=== PATIENT | male | born 1990 | race Caucasian/White ===

== ENCOUNTER 2018-03-03 19:10 | Emergency (ER) | payer SELFPAY ==
[2018-03-03] MEDS ORDERED: TETRACAINE HCL 0.5% OPH SOLN 4 ML OD ONE (19:58)
--- NOTE | 2018-03-03 20:31 | ER Document Report ---
ED General - General Chief Complaint: Eye Injury Stated Complaint: EYE INJURY Time Seen by Provider: 03/03/18 19:57 Primary Care Provider: SIVA SCHULTE DO [ACTIVE STAFF] - 03/05/18 Notes: Patient is a 27-year-old male without chronic medical problems who presents with severe right eye pain. States this started after he removed the contact from his right eye and believes that he suddenly pinched the surface of the right eye at that time. Since then he has had a severe, constant, burning, stabbing pain to the eye. Nothing improves the pain, exposure to light worsens the pain. Notes hyperlacrimation. No history of similar injuries in the past. Has not seen his eye care provider regarding today's concerns. Denies any additional injuries or concerns today. TRAVEL OUTSIDE OF THE [place] IN LAST 30 DAYS: No - Related Data Allergies/Adverse Reactions: aspirin [Aspirin] Allergy (Mild, Verified 03/03/18 19:50) codeine [Codeine] Allergy (Mild, Verified 03/03/18 19:50) latex [Latex] Allergy (Mild, Verified 03/03/18 19:50) Penicillins Allergy (Mild, Verified 03/03/18 19:50) Sulfa (Sulfonamide Antibiotics) Allergy (Mild, Verified 03/03/18 19:50) Past Medical History - General Information source: Patient - Social History Smoking Status: Never Smoker Frequency of alcohol use: None Drug Abuse: None Lives with: Family Family History: Reviewed & Not Pertinent - Past Medical History Cardiac Medical History: Reports: Hx Atrial Fibrillation, Hx Congestive Heart Failure, Hx Hypertension Denies: Hx Coronary Artery Disease, Hx Heart Attack Pulmonary Medical History: Reports: Hx Asthma, Hx Pneumonia - hx walking Denies: Hx Bronchitis, Hx COPD Neurological Medical History: Denies: Hx Cerebrovascular Accident, Hx Seizures Endocrine Medical History: Denies: Hx Diabetes Mellitus Type 1, Hx Diabetes Mellitus Type 2 Musculoskeletal Medical History: Denies Hx Arthritis Psychiatric Medical History: Reports: Hx Attention Deficit Hyperactivity Disorder, Hx Depression Past Surgical History: Reports: Hx Adenoidectomy, Hx Myringotomy, Hx Tonsillectomy - adnoidectomy - Immunizations Immunizations up to date: Yes Hx Diphtheria, Pertussis, Tetanus Vaccination: Yes Review of Systems - Review of Systems Notes: Constitutional: Negative for fever. HENT: Negative for sore throat. Eyes: Positive for right eye pain Cardiovascular: Negative for chest pain. Respiratory: Negative for shortness of breath. Gastrointestinal: Negative for abdominal pain, vomiting or diarrhea. Genitourinary: Negative for dysuria. Musculoskeletal: Negative for back pain. Skin: Negative for rash. Neurological: Negative for headaches, weakness or numbness. 10 point ROS negative except as marked above and in HPI. Physical Exam - Vital signs Vitals: Temp Pulse Resp BP Pulse Ox 98.1 F 99 15 159/97 H 100 03/03/18 19:22 03/03/18 19:22 03/03/18 19:22 03/03/18 19:22 03/03/18 19:22 Interpretation: Hypertensive Notes: PHYSICAL EXAMINATION: GENERAL: Appears to be in pain, uncomfortable HEAD: Atraumatic, normocephalic. EYES: Left eye unremarkable. Right eye extraocular motions are intact. Pupillary reflex intact bilaterally. There is diffuse conjunctival injection and hyperlacrimation. Pupil without tear dropping. Fluorescein examination reveals a relatively large corneal abrasion in the center of the cornea. Visual adler intact. ENT: Moist mucous membranes. NECK: Normal range of motion LUNGS: Normal work of breathing HEART: 2+ radial pulses bilaterally EXTREMITIES: no pitting or edema. No cyanosis. NEUROLOGICAL: No focal neurological deficits. Moves all extremities spontaneously and on command. PSYCH: Anxious SKIN: Warm, Dry, normal turgor, no rashes or lesions noted. Course - Re-evaluation Re-evalutation: 03/03/18 20:32 Patient presents after sustaining a corneal abrasion to his right eye after attempting to take his contact lens out and apparently pinching his corneal surface. On fluorescein exam the patient does have a quite large corneal abrasion in the center of the cornea. No evidence of retained foreign body. Extraocular motions are intact. He has hyperlacrimation and diffuse conjunctival injection. No evidence of proptosis, no evidence of globe rupture. No tear dropping of the pupil. Patient did have significant relief after instillation of a dose of tetracaine. He has been started on ciprofloxacin drops due to using contacts. I have advised to follow-up with ophthalmology on Monday. At this time will discharge with return precautions and follow-up recommendations. Verbal discharge instructions given a the bedside and opportunity for questions given. Medication warnings reviewed. Patient is in agreement with this plan and has verbalized understanding of return precautions and the need for primary care follow-up in the next 24-72 hours. - Vital Signs Vital signs: Temp Pulse Resp BP Pulse Ox 97.8 F 98 21 H 147/91 H 100 03/03/18 20:33 03/03/18 20:33 03/03/18 20:33 03/03/18 20:33 03/03/18 20:33 Discharge - Discharge Clinical Impression: Right corneal abrasion Qualifiers: Encounter type: initial encounter Qualified Code(s): S05.01XA - Injury of conjunctiva and corneal abrasion without foreign body, right eye, initial encounter Condition: Stable Disposition: HOME, SELF-CARE Additional Instructions: You have a corneal abrasion. This should improve in the next several days. You should apply the eye drops that have been prescribed as directed. Follow-up with your eye doctor on monday. Return if you have worsening vision, worsening pain, increased drainage from the eye, you notice redness or puffiness around the eye, you develop a fever greater than 101F, or you have any other symptoms that are concerning to you. Prescriptions: Ciprofloxacin HCl [Ciloxan 0.3% Oph Soln 2.5 ml] 2 drop OP Q6H #1 bottle Forms: Parent Work Note Referrals: SIVA SCHULTE DO [ACTIVE STAFF] - 03/05/18
[2018-03-03 20:33] VITALS: BP 147/91
== END 2018-03-03 20:58 | disposition home or self-care (01) ==
LOC: ER 19:10
DX: S05.01XA Injury of conjunctiva and corneal abrasion without foreign body, right eye, initial encounter (principal); H57.11 Ocular pain, right eye; X58.XXXA Exposure to other specified factors, initial encounter; I10 Essential (primary) hypertension; J45.909 Unspecified asthma, uncomplicated; Z88.6 Allergy status to analgesic agent; Z88.5 Allergy status to narcotic agent; Z91.040 Latex allergy status; Z88.2 Allergy status to sulfonamides; Z88.0 Allergy status to penicillin
CPT/HCPCS: 99283; J3490

== ENCOUNTER → 2019-06-06 | Outpatient (CLI) | payer BC ==
--- NOTE | 2019-06-06 12:33 | ER RDC ASSESSMENT REPORT ---
Intake - In the Last 14 days Have you traveled outside [place]?: No Have you been in close contact with someone CONFIRMED: No Worked in Healthcare?: No - Symptoms Subjective Fever([place] feverish): Yes Chills: Yes Muscule Aches: Yes Runny Nose: Yes Sore Throat: Yes Cough (New or worsening chronic cough): Yes --How many day(s)?: Reports a dry cough and green productive sputum Shortness of breath: Yes Nausea or Vomiting: Yes Headache: Yes Abdominal Pain: Yes Diarrhea(3 or more loose stools in last 24 hours): No - Do you have any of the following Chronic lung disease: Asthma or emphysema or COPD: No Cystic Fibrosis: No Diabetes: No High Blood Pressure: Yes Cardiovascular Disease: Yes Chronic Kidney Disease: No Chronic Liver Disease: No Chronic blood disorder like Sickle Cell Disease: No Weak immune system due to disease or medication: No Neurologic condition that limits movement: No Developmental delay - Moderate to Severe: No Recent (within past 2 weeks) or current : No Morbid Obesity (>100 pounds over ideal weight): Yes Obesity Comment: Height 6 feet 0 inches weight 340 pounds 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 Started feeling ill with flu like symptoms on monday. Contacted PCP and started on medication. - Related Data Allergies/Adverse Reactions: aspirin [Aspirin] Allergy (Mild, Verified 03/03/18 19:50) codeine [Codeine] Allergy (Mild, Verified 03/03/18 19:50) latex [Latex] Allergy (Mild, Verified 03/03/18 19:50) Penicillins Allergy (Mild, Verified 03/03/18 19:50) Sulfa (Sulfonamide Antibiotics) Allergy (Mild, Verified 03/03/18 19:50) Past Medical History - Social History Smoking Status: Never Smoker Family History: Reviewed & Not Pertinent - Past Medical History Cardiac Medical History: Reports: Hx Atrial Fibrillation, Hx Congestive Heart Failure, Hx Hypertension Denies: Hx Coronary Artery Disease, Hx Heart Attack Pulmonary Medical History: Reports: Hx Asthma, Hx Pneumonia - hx walking Denies: Hx Bronchitis, Hx COPD Neurological Medical History: Denies: Hx Cerebrovascular Accident, Hx Seizures Endocrine Medical History: Denies: Hx Diabetes Mellitus Type 1, Hx Diabetes Mellitus Type 2 Musculoskeletal Medical History: Denies Hx Arthritis Psychiatric Medical History: Reports: Hx Attention Deficit Hyperactivity Disorder, Hx Depression Past Surgical History: Reports: Hx Adenoidectomy, Hx Myringotomy, Hx Tonsillectomy - adnoidectomy Physical Exam - General General appearance: Appears well, Alert In distress: None Notes: PHYSICAL EXAMINATION: GENERAL: Well-appearing and in no acute distress. HEAD: Atraumatic, normocephalic. EYES: sclera anicteric, conjunctiva are normal. ENT: nares patent. Moist mucous membranes. NECK: Normal range of motion, supple without lymphadenopathy LUNGS: CTAB and equal. No wheezes rales or rhonchi. Resp even and unlabored. Lung sounds clear HEART: Regular rate and rhythm without murmurs ABDOMEN: Soft, nontender, normal bowel sounds, no guarding. EXTREMITIES: . No cyanosis. NEUROLOGICAL: Normal speech. PSYCH: Normal mood, normal affect. SKIN: Warm, Dry, normal turgor Diagnostic Results Laboratory Results: Patient instructed on negative rapid strep and negative rapid flu results. Pending strep culture pending COVID testing results. provided instructions regarding COVID to include: As a person under investigation for Covid 19, the [place] department of Health and Human Services, division of public health advises you to adhere to the following guidance until your test results are reported to you. If your test result is positive, you will receive additional information from your provider and your local health department at that time. Remain at home until you are cleared by the health provider or public health authorities. Keep a log of visitors to your home, notify any visitors to your home of your isolation status. If you plan to move to a new address or leave the county, notify the local health department in your County. Call your doctor or seek care if you have an urgent medical need. Before seeking medical care, call ahead to get instructions from the provider before arriving at the medical office clinic or hospital. Notify them that you are being tested for the virus that causes Covid 19 so that arrangements can be made, as necessary, to prevent transmission to others in the healthcare setting. Next, notify the local health department in your county. If a medical emergency arises and you need to call 911, inform the first responders that you are being tested for the virus that causes Covid 19. Next, notify the local health department in your county. Patient Education/Counseling Counseling/Education: Patient presents with upper respiratory symptoms worrisome for possible Covid 19. Patient does not have emergency worring symptoms such as difficulty breathing, shortness of breath, chest pain, pressure, confusion or cyanosis. Patient appears suitable for discharge. Patient to follow up with PCP today. Instructed to go to ED for persistent or worsening symptoms. Patient's vital signs are stable and patient is nontoxic in appearance. Good return precautions have been discussed with patient, patient verbalized understanding and is agreeable with discharge plan of care at this time. RDC Discharge - Discharge Clinical Impression: COVID - 19 SCREENING Condition: Stable Disposition: Home; Selfcare
[2019-06-06 12:38] VITALS: BP 188/86
[2019-06-06 13:25] LABS: A TYPE INFLUENZA AG NEGATIVE (NEGATIVE); B INFLUENZA AG NEGATIVE (NEGATIVE)
== END ==
LOC: RDC 11:58
PROVIDERS: ATTEND Nurse Practitioner Family
DX: Z20.828 Contact with and (suspected) exposure to other viral communicable diseases (principal); R50.9 Fever, unspecified; R05 Cough; R06.02 Shortness of breath; R11.0 Nausea; R51 Headache; R10.9 Unspecified abdominal pain; I10 Essential (primary) hypertension; E66.01 Morbid (severe) obesity due to excess calories; Z88.0 Allergy status to penicillin; Z88.2 Allergy status to sulfonamides; Z88.6 Allergy status to analgesic agent; Z91.040 Latex allergy status; Z86.79 Personal history of other diseases of the circulatory system; Z87.09 Personal history of other diseases of the respiratory system
CPT/HCPCS: 87070; 87635; 87804; 87880; 99211